=== PATIENT | male | born 1970 | race Caucasian/White ===

== ENCOUNTER 2017-05-20 15:05 | Emergency (ER) | payer BC ==
[2017-05-20 15:11] VITALS: BMI 31.6
[2017-05-20] MEDS ORDERED: NS 1000 ML 1,000 ML ONE (15:17)
[2017-05-20] MEDS ORDERED: ZOFRAN INJ 4 MG VIAL ONE (15:17)
[2017-05-20] MEDS ORDERED: TORADOL 30 MG VIAL ONE ×2 (15:18→15:58)
--- NOTE | 2017-05-20 15:26 | DR.GENAD ---
HPI - PCP Primary Care Physician: BISMARK ACE - Complaint/Symptoms Chief Complaint:: PT STATES " ABOUT AN HOUR AND 1/2 AGO HE STARTED HAVING PAIN IN THE TESTICAL RIGHT AREA...... AND PEINEAL AREA PT HAS HX RENAL STONES . - Nurses notes reviewed Nurses Notes Review: Yes - Source History Provided: Patient - Mode of Arrival Mode of Arrival: Ambulatory - Timing Onset of Chief Complaint: 05/20/17 Came on: Suddenly - Duration Duration: Constant How lon Duration: Hours - Location Location: right testicle - Severity Severity: Moderate - Modifying Factors Worsens:: unknown - Associated Signs and Symptoms Associated Signs and Symptoms: nausea - Other History Other History: Hx stones PMH - PMH Past Medical History: Yes Past Medical History: Arthritis Past Medical History Comment: RENAL STONES Past Surgical History: No - Family History History of Family Medical Conditions: No - Social History Does patient currently use any type of tobacco product: No Have you used tobacco products in the last 12 months: No Type of Tobacco Use: Cigarettes How many years tobacco product used: 25 Does any household member use tobacco: No Alcohol Use: None Do you use any recreational Drugs:: No Lives With: Family Lives Where: Home - infectious screening In the last 2 months have you had wt loss of >10#?: NO Have you had fever, night sweats or hemotysis?: No Have you traveled outside the country in the last 6 months?: No Isolation: Standard ROS - Review of Systems Constitutional: No Symptoms Reported Eyes: No Symptoms Reported ENTM: No Symptoms Reported Respiratoy: No Symptoms Reported Cardiovascular: No Symptoms Reported Gastrointestinal/Abdominal: Abdominal Pain, Nausea Genitourinary: Pain Neurological: No Symptoms Reported Musculoskeletal: No Symptoms Reported Integumentary: No Symptoms Reported Hematologic/Lymphatic: No Symptoms Reported Endocrine: No Symptoms Reported Psychiatric: No Symptoms Reported PE - Vital Signs Vitals: Temperature 98.7 F Pulse Rate 75 Respiratory Rate 20 Blood Pressure [Left Arm] 212/110 Blood Pressure 204/121 O2 Sat by Pulse Oximetry 98 - General Limitations: No Limitations General Appearance: Alert, In No Apparent Distress - Head Head Exam: Normal Inspection - Eyes Eye exam: Normal Appearance, EOMI. negative: Scleral Icterus, Conjunctival Injection - ENT ENT Exam: Normal Exam, Normal Oropharynx External Ear Exam: Normal External Inspection - Neck Neck Exam: Normal Inspection, Full ROM, Trachea Midline - Chest Chest Inspection: Normal Inspection - Respiratory Respiratory Exam: Normal Lung Sounds Bilat. negative: Accessory Muscle Use, Respiratory Distress - Abdominal Exam Abdominal Exam: Normal Inspection, Soft. negative: Distention, Tenderness, Guarding - Extremities Extremities Exam: Normal Inspection, Full ROM, Tenderness - Back Back Exam: Normal Inspection - Neurologic Neurological Exam: Alert, Oriented X3, CN II-XII Intact - Psychiatric Psychiatric Exam: Normal Mood - Skin Skin Exam: Intact, Normal Color ROR - Labs Reviewed Result Diagrams: 05/20/17 15:25 05/20/17 15:25 Laboratory: WBC 9.3 X10^3/uL (3.6-10.0) 05/20/17 15:25 RBC 4.52 X10^6/uL (4.7-6.0) L 05/20/17 15:25 Hgb 13.5 g/dL (13.5-18.0) 05/20/17 15:25 Hct 39.4 % (42.0-54.0) L 05/20/17 15:25 MCV 87.2 fL (80.0-100.0) 05/20/17 15:25 MCH 29.9 pg (27.0-34.0) 05/20/17 15:25 MCHC 34.4 g/dL (33.0-35.0) 05/20/17 15:25 RDW 13.8 % (11.6-16.5) 05/20/17 15:25 Plt Count 241 X10^3/uL (150.0-450.0) 05/20/17 15:25 MPV 8.6 fL (7.4-11.0) 05/20/17 15:25 Neut % 59.8 % (42.0-75.0) 05/20/17 15:25 Lymph % 25.8 % (21.0-51.0) 05/20/17 15:25 Darke % 11.4 % (0.0-13.0) 05/20/17 15:25 Eos % 1.7 % (0.9-2.9) 05/20/17 15:25 Baso % 1.3 % (0.2-1.0) H 05/20/17 15:25 Neut # 5.6 x10^3/uL (2.2-4.8) H 05/20/17 15:25 Lymph # 2.4 X10^3/uL (1.3-2.9) 05/20/17 15:25 Darke # 1.1 x10^3/uL (0.3-0.8) H 05/20/17 15:25 Eos # 0.2 x10^3/uL (0.0-0.2) 05/20/17 15:25 Baso # 0.1 X10^3/uL (0.0-0.1) 05/20/17 15:25 Absolute Nucleated RBC 0.1 /100WBC 05/20/17 15:25 Sodium 144 mmol/L (136-145) 05/20/17 15:25 Corrected Sodium TNP 05/20/17 15:25 Potassium 4.2 mmol/L (3.5-5.1) 05/20/17 15:25 Chloride 106 mmol/L (98-107) 05/20/17 15:25 Carbon Dioxide 29.2 mmol/L (21-32) 05/20/17 15:25 BUN 12 mg/dL (7-18) 05/20/17 15:25 Creatinine 0.99 mg/dL (0.70-1.30) 05/20/17 15:25 Est GFR (MDRD) Af Amer > 60 (>60) 05/20/17 15:25 Est GFR (MDRD) Non-Af > 60 (>60) 05/20/17 15:25 Glucose 98 mg/dL (65-99) 05/20/17 15:25 Calcium 8.8 mg/dL (8.5-10.1) 05/20/17 15:25 Corrected Calcium TNP 05/20/17 15:25 Total Bilirubin 0.30 mg/dL (0.2-1.0) 05/20/17 15:25 AST 20 Units/L (15-37) 05/20/17 15:25 ALT 29 Units/L (12-78) 05/20/17 15:25 Alkaline Phosphatase 47 Units/L (46-116) 05/20/17 15:25 Total Protein 7.6 g/dL (6.4-8.2) 05/20/17 15:25 Albumin 4.0 g/dL (3.4-5.0) 05/20/17 15:25 Globulin 3.6 g/dL (2.5-4.5) 05/20/17 15:25 Albumin/Globulin Ratio 1.1 Ratio (1.1-2.1) 05/20/17 15:25 Lipase 200 Units/L (73-393) 05/20/17 15:25 - XRAY XRAY Interpreted by: Radiologist XRAY Findings: CT abdo/pelvis:right ureteric stone - Diagnosis Discharge Problem: Ureter colic - Discharge Plan Condition: Stable Prescriptions: Hydrocodone-Acet 5 mg/325 mg [[place] 5/325 mg Tab] 1 tab PO Q6H PRN #12 tab PRN Reason: Pain Ondansetron [Zofran Odt] 4 mg PO Q8H PRN #12 tab PRN Reason: Nausea/Vomiting - Follow ups/Referrals Follow ups/Referrals: Pedrito SOFIA [Primary Care Provider] - 3 days - Instructions
[2017-05-20] MEDS ORDERED: CATAPRES TAB 0.2 MG PO ONE (15:31)
[2017-05-20] MEDS ORDERED: TORADOL 30 MG VIAL IVP ONE (15:33)
[2017-05-20] MEDS ORDERED: NS 1000 ML 1,000 ML IV ONE (15:33)
[2017-05-20] MEDS ORDERED: ZOFRAN INJ 4 MG VIAL IVP ONE (15:33)
[2017-05-20] MEDS ORDERED: CATAPRES TAB 0.2 MG ONE (15:36)
[2017-05-20] MEDS ORDERED: PHENERGAN INJ 25 MG ONE (15:38)
[2017-05-20] MEDS ORDERED: PHENERGAN INJ 25 MG IV ONE (15:39)
[2017-05-20 15:40] LABS: BASOPHILS # (AUTO) 0.1 X10^3/uL (0.0-0.1); BASOPHILS % (AUTO) 1.3 % (0.2-1.0); EOSINOPHILS # (AUTO) 0.2 x10^3/uL (0.0-0.2); EOSINOPHILS % (AUTO) 1.7 % (0.9-2.9); HEMATOCRIT 39.4 % (42.0-54.0); HEMOGLOBIN 13.5 g/dL (13.5-18.0); LYMPHOCYTES # (AUTO) 2.4 X10^3/uL (1.3-2.9); LYMPHOCYTES % (AUTO) 25.8 % (21.0-51.0); MEAN CORPUSCULAR HEMOGLOBIN 29.9 pg (27.0-34.0); MEAN CORPUSCULAR HGB CONC 34.4 g/dL (33.0-35.0); MEAN CORPUSCULAR VOLUME 87.2 fL (80.0-100.0); MEAN PLATELET VOLUME 8.6 fL (7.4-11.0); MONOCYTES # (AUTO) 1.1 x10^3/uL (0.3-0.8); MONOCYTES % (AUTO) 11.4 % (0.0-13.0); NEUTROPHILS # (AUTO) 5.6 x10^3/uL (2.2-4.8); NEUTROPHILS % (AUTO) 59.8 % (42.0-75.0); PLATELET COUNT 241 X10^3/uL (150.0-450.0); RED BLOOD COUNT 4.52 X10^6/uL (4.7-6.0); RED CELL DISTRIBUTION WIDTH 13.8 % (11.6-16.5); WHITE BLOOD COUNT 9.3 X10^3/uL (3.6-10.0)
[2017-05-20 15:52] LABS: ALANINE AMINOTRANSFERASE 29 Units/L (12-78); ALKALINE PHOSPHATASE 47 Units/L (46-116); ASPARTATE AMINO TRANSFERASE 20 Units/L (15-37); BLOOD UREA NITROGEN 12 mg/dL (7-18); CALCIUM 8.8 mg/dL (8.5-10.1); CARBON DIOXIDE 29.2 mmol/L (21-32); CHLORIDE 106 mmol/L (98-107); CREATININE 0.99 mg/dL (0.70-1.30); GLUCOSE 98 mg/dL (65-99); LIPASE 200 Units/L (73-393); SODIUM 144 mmol/L (136-145); TOTAL PROTEIN 7.6 g/dL (6.4-8.2); eGFR BLACK RACES > 60 (>60); eGFR NON BLACK RACES > 60 (>60)
[2017-05-20] MEDS ORDERED: TORADOL 60 MG VIAL IVP ONE (15:55)
[2017-05-20 15:57] VITALS: BP 212/110
--- NOTE | 2017-05-20 16:22 | CT ---
HISTORY: Pain Study: CT abdomen and pelvis without contrast Comparison: 12/19/2016 Technique: Multiple axial images of the abdomen and pelvis were obtained from the lung bases to the pubic symph ysis without contrast. Coronal and sagittal multiplanar reconstructions were performed. Automated d ose control was used. Findings: The lung bases are clear. The liver and spleen are normal size and density. There is a tiny punctate calcification in the right lobe of liver which is unchanged. No focal lesion is seen. The gallbladd er, pancreas, and bile ducts are normal. The adrenals are normal. The right kidney is slightly promi nent with mild hydronephrosis on the right. No renal stones are seen . There is a 1 cm cyst along th e mid polar region on the left anteriorly. There is mild stranding around the right ureter proximall y and extending distally . There is a 2-3 mm stone lodged and ureterovesicle junction on the right w hich was not seen previously. The prostate gland is mildly enlarged and there is some questionable f at density in the inguinal regions which is unchanged. There are diverticula throughout the sigmoid colon with no pericolonic inflammation. The appendix is normal. There is a small hiatal hernia. Dege nerative changes are seen throughout the spine with no aggressive osseous lesions. IMPRESSION: 2-3 mm stone lodged in the ureterovesicle junction on the right causing mild obstruction. Probable 1 cm cyst along the left kidney anteriorly which is unchanged . Mild prostatic enlargement and questionable small inguinal hernias bilaterally which are unchanged . Scattered diverticula throughout the colon which are unchanged. Reported By:
[2017-05-20] MEDS ORDERED: DEMEROL INJ ONE ×2 (16:30→17:27)
[2017-05-20] MEDS ORDERED: DEMEROL INJ IVP ONE ×2 (16:34→17:25)
[2017-05-20 17:07] LABS: BILIRUBIN,URINE NEGATIVE (NEGATIVE); BLOOD/HEMOGLOBIN,URINE 5+ (NEGATIVE); GLUCOSE, URINE NEGATIVE (NEGATIVE); KETONES,URINE NEGATIVE (NEGATIVE); LEUKOCYTE ESTERASE ,URINE 1+ (NEGATIVE); NITRITES,URINE NEGATIVE (NEGATIVE); PROTEIN,URINE 2+ (NEGATIVE); UROBILINOGEN,URINE 1+ (NORMAL)
[2017-05-20 17:18] LABS: APPEARANCE,URINE CLOUDY (CLEAR); COLOR,URINE BLOODY (YELLOW)
[2017-05-20 17:19] LABS: BACTERIA,URINE 1+ /HPF (NEGATIVE); RBC,URINE TNTC /HPF (NEGATIVE); SQUAMOUS EPITHELIAL CELL,UR FEW /HPF (NEGATIVE)
== END 2017-05-20 17:36 | disposition home or self-care (01) ==
LOC: ER 15:16
DX: N23 Unspecified renal colic (principal); R10.84 Generalized abdominal pain
CPT/HCPCS: 36415; 74176; 80053; 81001; 83690; 85025; 87086; 96365; 96374; 99283; A4216; A4222; J1885; J2175; J2405; J2550

== ENCOUNTER 2017-05-21 19:13 | Emergency (ER) | payer BC ==
[2017-05-21 19:19] VITALS: BMI 32.3
--- NOTE | 2017-05-21 19:33 | DR.GENAD ---
HPI - PCP Primary Care Physician: BISMARK - Complaint/Symptoms Chief Complaint Doctors Comments: Patient was diagnosed with 2x3mm stone lodged in the ureterovesicle junction on the right causing mild obstruction. He presents today with c/o pain not relieved by medication given on yesterday. He reports that he usually takes hydrocodone for pain Chief Complaint:: "I came in yesterday and they dx me with a kidney stone. They gave me some pain meds but it hasn't been helping. I have been peeing out some blood clots but that's about it. It is just unbearable right now." - Source History Provided: Patient - Mode of Arrival Mode of Arrival: Ambulatory - Timing Onset of Chief Complaint: 05/21/17 PMH - PMH Past Medical History: Yes Past Medical History: Arthritis, Kidney Stones Past Surgical History: No - Family History History of Family Medical Conditions: No - Social History Does patient currently use any type of tobacco product: Yes Have you used tobacco products in the last 12 months: Yes Type of Tobacco Use: Cigarettes Does any household member use tobacco: Yes Alcohol Use: None Do you use any recreational Drugs:: No Lives With: Alone Lives Where: Home - infectious screening In the last 2 months have you had wt loss of >10#?: NO Have you had fever, night sweats or hemotysis?: No Have you traveled outside the country in the last 6 months?: No Isolation: Standard ROS - Review of Systems Eyes: No Symptoms Reported ENTM: No Symptoms Reported Respiratoy: No Symptoms Reported Cardiovascular: No Symptoms Reported Gastrointestinal/Abdominal: No Symptoms Reported Genitourinary: No Symptoms Reported Neurological: No Symptoms Reported Musculoskeletal: No Symptoms Reported Integumentary: No Symptoms Reported Hematologic/Lymphatic: No Symptoms Reported Endocrine: No Symptoms Reported Psychiatric: No Symptoms Reported All Other Systems: Reviewed and Negative PE - Vital Signs Vitals: Temperature 98.1 F Pulse Rate 76 Respiratory Rate 18 Blood Pressure [Left Arm] 212/110 Blood Pressure 193/109 O2 Sat by Pulse Oximetry 97 - General General Appearance: Alert, In No Apparent Distress - Head Head Exam: Normal Inspection, Atraumatic - Eyes Eye exam: Normal Appearance, PERRL, EOMI - ENT ENT Exam: Normal Exam TM/Canal Exam: Bilateral Normal Nose Exam: Normal Nose Exam Mouth Exam: Normal Inspection Throat Exam: Normal Inspection - Neck Neck Exam: Normal Inspection - Chest Chest Inspection: Normal Inspection - Respiratory Respiratory Exam: Normal Lung Sounds Bilat Respiratory Exam: Bilateral Clear to Auscultation - Cardiovascular Cardiovascular Exam: Regular Rate - Abdominal Exam Abdominal Exam: Normal Inspection, Normal Bowel Sounds Abdominal Tenderness: negative: RUQ, RLQ, LUQ, LLQ, Epigastrium, Suprapubic, Diffuse, Mild, Moderate, Severe, Other - Extremities Extremities Exam: Normal Inspection - Back Back Exam: Normal Inspection - Neurologic Neurological Exam: Alert, Oriented X3, CN II-XII Intact - Psychiatric Psychiatric Exam: Normal Affect - Diagnosis Discharge Problem: Right nephrolithiasis, Renal colic on right side - Discharge Plan Condition: Stable - Follow ups/Referrals Follow ups/Referrals: Pedrito SOFIA [Primary Care Provider] - 3 days - Instructions
[2017-05-21] MEDS ORDERED: PHENERGAN INJ 25 MG IV ONE (19:38)
[2017-05-21] MEDS ORDERED: PHENERGAN INJ 25 MG ONE (19:40)
[2017-05-21] MEDS ORDERED: MORPHINE SULFATE INJ 4 MG ONE (19:40)
[2017-05-21] MEDS ORDERED: MORPHINE SULFATE INJ 4 MG IVP ONE (19:56)
[2017-05-21] MEDS ORDERED: TORADOL 30 MG VIAL ONE (20:17)
[2017-05-21] MEDS ORDERED: TORADOL 30 MG VIAL IVP ONE (20:17)
[2017-05-21 20:32] VITALS: BP 152/80
== END 2017-05-21 20:30 | disposition home or self-care (01) ==
LOC: ER 19:21
DX: N20.0 Calculus of kidney (principal); N23 Unspecified renal colic
CPT/HCPCS: 96365; 96374; 96375; 99282; 99283; A4222; J1885; J2270; J2550

== ENCOUNTER 2019-06-01 17:44 | Observation (INO) ==
[2019-06-01] MEDS ORDERED: ASPIRIN 81 MG CHEWTAB PO ONE (18:09)
[2019-06-01] MEDS ORDERED: ASPIRIN 81 MG CHEWTAB ONE (18:16)
[2019-06-01] MEDS: NITROSTAT SL PRN ×2 (18:20→18:33)
--- NOTE | 2019-06-01 18:20 | DR.CP ---
HPI Time Seen Time Seen by Provider: 06/01/19 17:49 PCP Primary Care Physician: DR SOFIA Complaint Chief Complaint Doctor Comments: Pt presented for Chest pain. He woke up and was stilling on porch and then stood up and had sudden onset chest pressure and dizziness. He reports squeezing like pain and has been constant. 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 He denies any sob, n/v/diaphoresis or reflux. pt is on Prozac and feels like prior panic attack. Risk factor HTN, smoker, obese. Denies any calf pain. Chief Complaint:: PT STATES THAT ABOUT 4:30 PT WAS SITTING ON HIS PORCH WHEN HE STOOD UP AND SUDDENLY FELT OFF BALANCES AND FELT LIKE HE "WAS SEEING STARS" AND HAD A TIGHTNESS ACROSS HIS ENTIRE CHEST. PT STATES THAT AT THAT TIME THE TIGHTNESS WAS SEVERE AND RATED 7/10 BUT NOW HAS EASED OFF TO 4/10 AND PT STATES HE JUST FEELS "SHAKY" ON THE INSIDE. Reviewed Nurses Notes Review: Yes Source History Provided: Patient Mode of Arrival Mode of Arrival: Ambulatory Timing Onset of Chief Complaint: 06/01/19 Came on: Suddenly Pain: Present Now Duration Duration: Constant How lon Duration: Hours (ago) Location Location of Chest Pain: Chest Chest Pain Radiation Location: None Context Onset: At rest Cardiac Risk Factors: Family History and HTN PE Risk Factors: None; denies Recent Trauma/Surgery and Immobilization History of: None; denies GA Prehospital Care: None Quality Quality: Squeezing Severity Severity: Moderate Modifying Factors Worsens: Nothing Impoves: Nothing Associated Signs and Symptoms Associated Signs and Symptoms: denies Shortness of Breath, Palpitations, Diaphoresis, Nausea/Vomiting and Calf Pain/Swelling PMH PMH Past Medical History: Yes Past Medical History: Anxiety, Arthritis and Hypertension Past Medical History Comment: psoriasis Past Surgical History: Yes Surgical History: Ortho Surgery Family History History of Family Medical Conditions: Yes Family Medical History: Cancer; denies [place], Coronary Artery Disease and Sudden Cardiac Social History Does patient currently use any type of tobacco product: Yes Have you used tobacco products in the last 12 months: Yes Type of Tobacco Use: Cigarettes Packs per day or dips/chews per day: 1 Does any household member use tobacco: Yes Alcohol Use: None Do you use any recreational Drugs:: No Lives With: Family Lives Where: Home infectious screening In the last 2 months have you had wt loss of >10#?: NO Have you had fever, night sweats or hemotysis?: No Have you traveled outside the country in the last 6 months?: No Isolation: Standard ROS Review of Systems Constitutional: negative Chills and Fever Eyes: Blurred Vision ENTM: negative Nose Congestion Respiratoy: negative Productive Cough and Short of Breath Cardiovascular: Chest Pain; negative Edema and Syncope Gastrointestinal/Abdominal: negative Abdominal Pain and Nausea Neurological: Headache and Dizziness; negative Numbness, Paresthesia and Weakness Musculoskeletal: negative Muscle Pain Integumentary: Lesions (psoriasis) Hematologic/Lymphatic: No Symptoms Reported Endocrine: No Symptoms Reported Psychiatric: Anxiety All Other Systems: Reviewed and Negative PE Vitals Vitals: Temperature 98.0 F Pulse Rate 103 Respiratory Rate 20 Blood Pressure [Left Arm] 152/80 Blood Pressure 117/65 O2 Sat by Pulse Oximetry 97 General Limitations: No Limitations and Other (obese) General Appearance: Alert and In Distress (mild pain) Eyes Eye exam: Normal Appearance and EOMI; negative Scleral Icterus ENT ENT Exam: Normal Exam, Normal Oropharynx and Mucous Membranes Moist Chest Chest Inspection: Normal Inspection and Symmetric Chest Wall Rise; negative Tenderness Respiratory Respiratory Exam: Normal Lung Sounds Bilat Respiratory Exam: Bilateral: Clear to Auscultation Cardiovascular Cardiovascular Exam: Normal Rhythm, Tachycardia and Normal Heart Sounds; negative Systolic Murmur and Diastolic Murmur Pulse: Normal, Radial, Left and Right Edema: Normal Abdominal Exam Abdominal Exam: Normal Inspection, Normal Bowel Sounds and Soft; negative Distention, Tenderness, Guarding and Rebound Extremities Extremities Exam: Normal Inspection, Full ROM and Normal Capillary Refill; negative Edema Neurologic Neurological Exam: Alert, Oriented X3 and Normal Gait; negative Motor Sensory Deficit Psychiatric Psychiatric Exam: Normal Affect, Normal Mood and Anxious Skin Skin Exam: Warm, Dry, Intact, Normal Color and Rash (plaque psoriasis) MDM Additional Information Additional Information Obtained From: Old Records and Family Differential Diagnosis Differential Diagnosis: Angina and Myocardial Infarction COURSE Treatment Treatment: Pt with chest tightness/squeezing. He has RF, htn, smoker and obesity on adipex. CP relieved with SL nitro. Concern for ACS and needs for further ev aluation and monitoring. ЕКАТЕРИНА score 2pt (.3%) Reevaluation 1st: Improved (after SL NG x1 chest pressure 3/10, still tachy) 2nd: Improved (chest tightness improved with 2nd SL NG and ativan 0.25mg. Negative CXR, EKG St, Trop 0.2. d/w pt results and concern for acs. Will plan to admit pt. ) Consultation Called: 19:26 Call Returned: 20:46 Consultation Comments: spoke to Dr. Khan for CP admission. Agreed with plan and will seen tomorrow. 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) ROR Labs Reviewed Laboratory Results Reviewed?: Yes Result Diagrams: 06/01/19 18:12 06/01/19 18:12 Laboratory: WBC 8.5 X10^3/uL (3.6-10.0) 06/01/19 18:12 RBC 4.51 X10^6/uL (4.7-6.0) L 06/01/19 18:12 Hgb 14.3 g/dL (13.5-18.0) 06/01/19 18:12 Hct 40.2 % (42.0-54.0) L 06/01/19 18:12 MCV 89.1 fL (80.0-100.0) 06/01/19 18:12 MCH 31.7 pg (27.0-34.0) 06/01/19 18:12 MCHC 35.6 g/dL (33.0-35.0) H 06/01/19 18:12 RDW 13.1 % (11.6-16.5) 06/01/19 18:12 Plt Count 248 X10^3/uL (150.0-450.0) 06/01/19 18:12 MPV 8.4 fL (7.4-11.0) 06/01/19 18:12 Neut % (Auto) 63.4 % (42.0-75.0) 06/01/19 18:12 Lymph % (Auto) 24.3 % (21.0-51.0) 06/01/19 18:12 [place] % (Auto) 9.0 % (0.0-13.0) 06/01/19 18:12 Eos % (Auto) 2.5 % (0.9-2.9) 06/01/19 18:12 Baso % (Auto) 0.8 % (0.2-1.0) 06/01/19 18:12 Neut # (Auto) 5.4 x10^3/uL (2.2-4.8) H 06/01/19 18:12 Lymph # (Auto) 2.1 X10^3/uL (1.3-2.9) 06/01/19 18:12 [place] # (Auto) 0.8 x10^3/uL (0.3-0.8) 06/01/19 18:12 Eos # (Auto) 0.2 x10^3/uL (0.0-0.2) 06/01/19 18:12 Baso # (Auto) 0.1 X10^3/uL (0.0-0.1) 06/01/19 18:12 Absolute Nucleated RBC 0.2 /100WBC 06/01/19 18:12 D-Dimer < 100 ng/mL (0-400) 06/01/19 18:12 Sodium 138 mmol/L (136-145) 06/01/19 18:12 Corrected Sodium 139 mmol/L (136-145) 06/01/19 18:12 Potassium 3.9 mmol/L (3.5-5.1) 06/01/19 18:12 Chloride 102 mmol/L (98-107) 06/01/19 18:12 Carbon Dioxide 27.7 mmol/L (21-32) 06/01/19 18:12 BUN 12 mg/dL (7-18) 06/01/19 18:12 Creatinine 0.99 mg/dL (0.70-1.30) 06/01/19 18:12 Est GFR (MDRD) Af Amer > 60 (>60) 06/01/19 18:12 Est GFR (MDRD) Non-Af > 60 (>60) 06/01/19 18:12 Glucose 140 mg/dL (65-99) H 06/01/19 18:12 Calcium 8.5 mg/dL (8.5-10.1) 06/01/19 18:12 Troponin I < 0.02 ng/mL (0-1.5) 06/01/19 18:12 Other Results Comments: Labs nml trop negative. Ddimer neg XRAY XRAY Interpreted by: Radiologist XRAY Findings: CXR negative EKG Rate: 103 [place]: LAD Rhythm: ST Block: None ST: Nonsp (poor r wave transition) Opioid Opioid Risk Tool Total: 0 Total Score Risk Category: Low Risk Copyright: [facility] predicting aberrant behaviors Diagnosis Discharge Problem: ACS (acute coronary syndrome), Hyperglycemia Hypertension Qualifiers: Hypertension type: essential hypertension Qualified Code(s): I10 - Essential (primary) hypertension
[2019-06-01 18:23] LABS: BASOPHILS # (AUTO) 0.1 X10^3/uL (0.0-0.1); BASOPHILS % (AUTO) 0.8 % (0.2-1.0); EOSINOPHILS # (AUTO) 0.2 x10^3/uL (0.0-0.2); EOSINOPHILS % (AUTO) 2.5 % (0.9-2.9); HEMATOCRIT 40.2 % (42.0-54.0); HEMOGLOBIN 14.3 g/dL (13.5-18.0); LYMPHOCYTES # (AUTO) 2.1 X10^3/uL (1.3-2.9); LYMPHOCYTES % (AUTO) 24.3 % (21.0-51.0); MEAN CORPUSCULAR HEMOGLOBIN 31.7 pg (27.0-34.0); MEAN CORPUSCULAR HGB CONC 35.6 g/dL (33.0-35.0); MEAN CORPUSCULAR VOLUME 89.1 fL (80.0-100.0); MEAN PLATELET VOLUME 8.4 fL (7.4-11.0); MONOCYTES # (AUTO) 0.8 x10^3/uL (0.3-0.8); NEUTROPHILS # (AUTO) 5.4 x10^3/uL (2.2-4.8); NEUTROPHILS % (AUTO) 63.4 % (42.0-75.0); PLATELET COUNT 248 X10^3/uL (150.0-450.0); RED BLOOD COUNT 4.51 X10^6/uL (4.7-6.0); RED CELL DISTRIBUTION WIDTH 13.1 % (11.6-16.5); WHITE BLOOD COUNT 8.5 X10^3/uL (3.6-10.0)
[2019-06-01] MEDS ORDERED: ATIVAN TAB 0.5 MG PO ONE (18:33)
[2019-06-01 18:36] LABS: BLOOD UREA NITROGEN 12 mg/dL (7-18); CALCIUM 8.5 mg/dL (8.5-10.1); CARBON DIOXIDE 27.7 mmol/L (21-32); CHLORIDE 102 mmol/L (98-107); COR NA(FOR HYPERGLY) 139 mmol/L (136-145); CREATININE 0.99 mg/dL (0.70-1.30); SODIUM 138 mmol/L (136-145); TROPONIN I < 0.02 ng/mL (0-1.5); eGFR NON BLACK RACES > 60 (>60)
[2019-06-01] MEDS ORDERED: ATIVAN TAB 0.5 MG ONE (18:36)
[2019-06-01] MEDS ORDERED: ATIVAN TAB 1 MG PO PRN (21:22)
[2019-06-01] MEDS ORDERED: NITROSTAT SL PRN (21:22)
[2019-06-01 22:01] VITALS: BMI 36.0
[2019-06-02 00:58] LABS: CKMB % 1.9 % (<4); CREATINE KINASE 106 Units/L (39-308); TROPONIN I < 0.02 ng/mL (0-1.5)
[2019-06-02 05:26] LABS: CHOL/HDL RATIO 7.1 (0.0-5.0); CKMB % 1.7 % (<4); CREATINE KINASE 100 Units/L (39-308); CREATINE KINASE MB 1.7 ng/mL (0-4.0); TROPONIN I < 0.02 ng/mL (0-1.5)
[2019-06-02] MEDS ORDERED: PROzac PO SCH (09:00)
[2019-06-02] MEDS ORDERED: ZESTRIL TAB 5 MG PO SCH (09:00)
[2019-06-02] MEDS ORDERED: ASPIRIN PO SCH (09:00)
[2019-06-02 10:41] VITALS: BP 132/87
[2019-06-02 10:51] LABS: CKMB % 1.5 % (<4); CREATINE KINASE 100 Units/L (39-308); CREATINE KINASE MB 1.5 ng/mL (0-4.0); TROPONIN I < 0.02 ng/mL (0-1.5)
--- NOTE | 2019-06-24 21:56 | DR.CARTERS ---
Short Stay Summary - Short Stay Summary for: Short Stay Summary for Date of:: 06/02/19 - Admission Date Date of Admission: 06/01/19 - Discharge Date Discharge Date: 06/02/19 - Admission Diagnoses (1) Chest pain, rule out acute myocardial infarction Status: Acute - Hospital Course Hospital Course: IS A 49 YEAR OLD PATIENT OF . HE PRESENTED TO THE ER WITH COMPLAITNS OF CHEST PAIN AND DIZZINESS. HE RATED PAIN 7/10 IN SEVERITY. HE REPORTED THAT IT WAS SQUEEZING AND CONSTANT. SYMPTOMS REPORTEDLY STARTED ABOUT AN HOUR PRIOR TO ARRIVAL. ON ARRIVAL TO THE ER, VITALS WERE 98.0-108-24-96%-130/83. LABS WERE OBTAINED. ABNORMAL LAB VALUES INCLUDED THE FOLLOWING: RBC 4.51, HCT 40.2, GLUCOSE 140. CARDIAC ENZYMES WERE WITHIN NORMAL LIMITS. EKG REVEALED SINUS TACHYCARDIA WITH HR 103. A CHEST XRAY WAS OBTAINED AND REVEALED: NO ACUTE CARDIOPULMONARY PROCESS. HE WAS GIVEN NITROGLYCERIN 0.4MG SL X 2 DOSES, ASPIRIN 81MG PO X 1, ATIVAN 0.25MG PO X 1. HE REPORTED SLIGHT IMPROVEMENT IN SYMPTOMS. HE WAS ADMITTED FOR FURTHER EVALUATION AND TREATMENT OF CHEST PAIN RULE OUT ACUTE WI. WE PLANNED TO OBTAIN SERIAL CARDIAC ENZYMES AND EKGS. ON THE MORNING FOLLOWING ADMISSION, PATIENT WAS ALERT AND ORIENTED, LYING IN BED ON MORNING ROUNDS. HE DENIED CHEST PAIN OR DIZZINESS AND REPORTED FEELING WELL. ON EXAMINATION, HEART WAS REGULAR IN RATE AND RHYTHM. BILATERAL LUNGS WERE CLEAR TO AUSCULTATION. ABDOMEN WAS ROUND, SOFT, AND NON-TENDER WITH NORMAL BOWEL SOUNDS NOTED IN ALL QUADRANTS. HIS VITALS ON MORNING ROUNDS WERE 98.3-84-20-98%-132/87. LIPID PANEL REVEALED: TRIGLYCERIDES 346, CHOLESTEROL 240, LDL 137, HCL 34. CARDIAC ENZYMES WERE WITHIN NORMAL LIMITS. MOST RECENT EKG REVEALED: SINUS RHYTHM WITH HR 73. WE PLANNED FOR DISCHARGE. INSTRUCTIONS FOR MEDICATIONS AND FOLLOW UP WERE DISCUSSED WITH PATIENT. HE VERBALIZED UNDERSTANDING. HE WAS DISCHARGED HOME WITH PRESCRIPTIONS FOR ECOTRIN 325MG PO DAILY AND ROSUVASTATIN 5MG PO HS. HE WAS INSTRUCTED TO FOLLOW UP WITH PCP ON 06/09/19 AT 13:30. HE WAS DISCHARGED HOME WITH FAMILY IN STABLE CONDITION. - Discharge Medications Discharge Medications: Home Medication List fluoxetine [Prozac] 40 mg PO DAILY 06/01/19 [History] lisinopril 5 mg PO DAILY 06/01/19 [History] phentermine [Adipex-P] 37.5 mg PO DAILY 06/01/19 [History] aspirin [Ecotrin] 325 mg PO QDAY #90 tab 06/02/19 [Rx] rosuvastatin 5 mg PO HS #30 tab 06/02/19 [Rx] Prescriptions: aspirin [Ecotrin] Charly Khan rosuvastatin Charly Khan Prescription drug monitoring program results: PDMP was not reviewed - Discharge Plan Disposition: HOME, SELF-CARE Condition: Stable Prescriptions: aspirin [Ecotrin] 325 mg PO QDAY #90 tab rosuvastatin 5 mg PO HS #30 tab - Follow up/Referrals Follow up/Referrals: Pedrito SOFIA [Primary Care Provider] - 06/09/19 1:30 pm - Instructions Instructions: Steps to Quit Smoking, [id number], Nonspecific Chest Pain, [id number], Hypertension, [id number], Angina Pectoris, [id number] Additional Instructions: DIET TOLERATED. ACTIVITY TOLERATED. Forms: Excuse From Work or School, Patient Portal
== END 2019-06-02 12:10 | disposition home or self-care (01) ==
LOC: ER 17:44 → MED/SURG 17:44
PROVIDERS: ADMIT Internal Medicine; ATTEND Internal Medicine
DX: R00.0 Tachycardia, unspecified; R42 Dizziness and giddiness; R94.31 Abnormal electrocardiogram [ECG] [EKG]; R07.89 Other chest pain; I10 Essential (primary) hypertension; R73.09 Other abnormal glucose
CPT/HCPCS: 36415; 71010; 71045; 80048; 80061; 82550; 82553; 84484; 85025; 85378; 93005; 94760; 96365; 99284; A4222; G0378